=== PATIENT | male | born 1995 | race Caucasian/White ===

== ENCOUNTER 2016-12-28 21:07 | Emergency (ER) | payer BC ==
[2016-12-28] MEDS ORDERED: SODIUM CHLORIDE 0.9% 1000ML 1,000 ML IV SCH (21:45)
[2016-12-28 21:46] LABS: BASOPHILS % (AUTO) 1 % (0-3); EOSINOPHILS % (AUTO) 0 % (0-9); HEMATOCRIT 45 % (39-53); MEAN CORPUSCULAR HGB CONC 34.1 gm/dl (32.0-36.0); MONOCYTES % (AUTO) 7.7 % (0-12); NEUTROPHILS % (AUTO) 68.7 % (37-80)
[2016-12-28 21:49] VITALS: TEMP 96.3; O2SAT 100
[2016-12-28 21:49] LABS: MEAN CORPUSCULAR VOLUME 81 fL (80-100)
[2016-12-28] MEDS ORDERED: SODIUM CHLORIDE 0.9% 1000ML 1,000 ML IV ONE (21:55)
[2016-12-28] MEDS ORDERED: SODIUM CHLORIDE 0.9% FLUSH 10 ML SOL IV PRN (21:56)
[2016-12-28 21:57] LABS: APPEARANCE,URINE Clear; BILIRUBIN,URINE NEGATIVE (NEGATIVE); COLOR,URINE Yellow; GLUCOSE, URINE (UA) NEGATIVE (NEGATIVE); KETONES,URINE NEGATIVE (NEGATIVE); LEUKOCYTE ESTERASE ,URINE NEGATIVE (NEGATIVE); NITRATE,URINE NEGATIVE (NEGATIVE); OCCULT BLOOD,URINE NEGATIVE (NEG-TRACE); PH,URINE 8.5; UROBILINOGEN,URINE 0.2 (0.2-1.0 EU)
[2016-12-28 22:00] LABS: ALBUMIN 4.2 gm/dl (3.4-5.0); CALCIUM 8.8 mg/dl (8.5-10.1); POTASSIUM 3.3 mMol/L (3.5-5.1)
[2016-12-28 22:06] LABS: RBC,URINE 0-1 (0-3AV/HPF); WBC,URINE 0-1 (0-5AV/HPF)
[2016-12-28] MEDS ORDERED: POTASSIUM CHLORIDE 10 MEQ TER PO ONE (22:13)
[2016-12-28] MEDS ORDERED: POTASSIUM CHLORIDE 10 MEQ TER ONE (22:59)
[2016-12-28 23:07] VITALS: BP 139/49; PULSE 80; RESP 16
== END 2016-12-28 23:13 | disposition home or self-care (01) ==
LOC: ED 21:07
DX: K52.9 Noninfective gastroenteritis and colitis, unspecified (principal)
CPT/HCPCS: 99284 ×3; 80053; 81001; 82150; 83690; 85025; Q9967; 36415; 74177

== ENCOUNTER 2017-08-06 19:57 | Emergency (ER) | payer BC ==
[2017-08-06 23:07] VITALS: BP 154/74; PULSE 79; RESP 16; TEMP 97.7; O2SAT 98
== END 2017-08-06 20:24 | disposition home or self-care (01) ==
LOC: ED 19:57
DX: R58 Hemorrhage, not elsewhere classified (principal)
CPT/HCPCS: 99281; 99282